=== PATIENT | male | born 1960 | race Hispanic/Latino ===

== ENCOUNTER 2018-02-24 07:41 | Day surgery (SDC) | payer BC ==
[2018-02-22 14:23] VITALS: BP 135/78
[~2018-02-24] VITALS: Ht 170.2 cm; Wt 80.8 kg
[2018-02-24] VITALS (16 sets, daily range): BP systolic 114–142; BP diastolic 72–97
[~2018-02-24 07:41] MED LIST: ROSU20TA PO
[2018-02-24] MEDS ORDERED: LACTATED RINGERS 1000ML 1,000 ML IV ONE (08:39)
[2018-02-24] MEDS: CEFTRIAXONE SODIUM 1 GM IVP PRN ×2 (09:04→11:45)
[2018-02-24] MEDS ORDERED: BUPIVACAINE/PF 0.25% 30ML VIAL IJ ONE (11:29)
[2018-02-24] MEDS ORDERED: LIDOCAINE HCL 1% 20 ML VIAL ONE (11:29)
[2018-02-24] MEDS ORDERED: LIDOCAINE PF 2% 5ML ABBOJECT ONE (11:34)
[2018-02-24] MEDS ORDERED: PROPOFOL 10 MG/ML 20ML VIAL IV ONE (11:34)
[2018-02-24] MEDS ORDERED: FENTANYL CITRATE PF 50 MCG/1 ML 2ML VIAL ONE ×2 (11:34→12:04)
[2018-02-24] MEDS ORDERED: OPIUM/BELLADONNA ALKALOIDS 1 EACH SUPP.RECT RC ONE (12:37)
[2018-02-24] MEDS ORDERED: MEPERIDINE-PF 25 MG/ML SYG ONE (12:37)
--- NOTE | 2018-02-24 14:15 | NUR ---
INSTRUCTED PT AND SPOUSE ON CHANGE OF LOPES TO LEG BAG ,VERBALIZE UNDERSTANDING,NO COMPLAINTS
[2018-02-24] MEDS ORDERED: PHENAZOPYRIDINE HCL 200 MG TABLET ONE (15:00)
--- NOTE | 2018-02-24 15:20 | NUR ---
TO CAR VIA W/C
== END 2018-02-24 15:20 | disposition home or self-care (01) ==
LOC: DAH 07:41
PROVIDERS: ATTEND Urology
DX: D07.4 Carcinoma in situ of penis (principal); N35.911 Unspecified urethral stricture, male, meatal; N35.919 Unspecified urethral stricture, male, unspecified site; N48.5 Ulcer of penis; Z79.899 Other long term (current) drug therapy
CPT/HCPCS: 53605; 54105; A4218; A4344; A4354; A4358; A4510; A4600; J0696; J2001; J2175; J2704; J3010 ×2; J3490; J7030; J7120; 88305

== ENCOUNTER 2018-05-19 06:48 | Day surgery (SDC) | payer BC ==
[2018-05-17 14:45] VITALS: BP 141/83
[2018-05-17 15:12] LABS: BASOPHILS % (AUTO) 0.6 % (0.0-5.0); EOSINOPHILS % (AUTO) 6.2 % (0.0-8.0); HEMATOCRIT 43.6 % (42-54); LYMPHOCYTES % (AUTO) 20.7 % (21.0-51.0); MEAN CORPUSCULAR HEMOGLOBIN 30.9 pg (27.0-33.0); MEAN CORPUSCULAR HGB CONC 33.9 g/dL (32.0-36.0); NEUTROPHILS % (AUTO) 61.5 % (40.0-77.0); NUCLEATED RED BLOOD CELLS 0.1 % (0.0-0.19); PLATELET COUNT (AUTO) 141 K/uL (130-400); RED BLOOD CELL COUNT(AUTO) 4.79 MIL/uL (4.50-6.20); RED CELL DISTRIBUTION WIDTH 14.3 % (11.0-15.5)
[2018-05-19] VITALS (17 sets, daily range): BP systolic 111–165; BP diastolic 72–95
[~2018-05-19] VITALS: Ht 170.2 cm; Wt 83.0 kg
[~2018-05-19 06:48] MED LIST changes: +MULTIVITAMINS PO; +ROSU10TA22 PO; -ROSU20TA PO; +VITAMIN B12 PO
[2018-05-19] MEDS ORDERED: LACTATED RINGERS 1000ML 1,000 ML IV ONE (07:24)
[2018-05-19] MEDS: CEFTRIAXONE SODIUM 1 GM IVP ONE ×2 (07:35→09:45)
[2018-05-19] MEDS ORDERED: BUPIVACAINE/PF 0.25% 30ML VIAL IJ ONE (09:20)
[2018-05-19] MEDS ORDERED: BACITRACIN 28.4 GM OINT TP ONE (09:20)
[2018-05-19] MEDS ORDERED: LIDOCAINE HCL 1% 20 ML VIAL ONE (09:20)
[2018-05-19] MEDS ORDERED: GLYCOPYRROLATE 1 MG/5 ML SYRINGE ONE (09:35)
[2018-05-19] MEDS ORDERED: LIDOCAINE PF 2% 5ML ABBOJECT ONE ×2 (09:35→09:40)
[2018-05-19] MEDS ORDERED: SUCCINYLCHOLINE 200MG/10ML SYR ONE (09:35)
[2018-05-19] MEDS ORDERED: MIDAZOLAM HCL 1 MG/ML 2ML VIAL ONE (09:35)
[2018-05-19] MEDS ORDERED: DEXAMETHASONE SOD PHOSPHATE 10MG/ML 1ML VIAL ONE (09:35)
[2018-05-19] MEDS ORDERED: NEOSTIGMINE 5MG/5ML SYR IV ONE (09:36)
[2018-05-19] MEDS ORDERED: PROPOFOL 10 MG/ML 20ML VIAL IV ONE ×2 (09:36→09:58)
[2018-05-19] MEDS ORDERED: ONDANSETRON HCL 4 MG/2 ML VIAL ONE (09:36)
[2018-05-19] MEDS ORDERED: FENTANYL CITRATE PF 50 MCG/1 ML 2ML VIAL ONE ×2 (09:36→09:52)
[2018-05-19] MEDS ORDERED: ROCURONIUM 10MG/1ML SYR 10 MG/ML ML ONE (09:36)
[2018-05-19] MEDS ORDERED: MEPERIDINE-PF 25 MG/ML SYG ONE ×2 (11:00→11:08)
[2018-05-19] MEDS ORDERED: PHENAZOPYRIDINE HCL 200 MG TABLET ONE (11:57)
== END 2018-05-19 12:40 | disposition home or self-care (01) ==
LOC: DAH 06:48
PROVIDERS: ATTEND Urology
DX: D07.4 Carcinoma in situ of penis (principal); Z98.890 Other specified postprocedural states; Z79.899 Other long term (current) drug therapy
CPT/HCPCS: 36415; 53220; 53605; 85025; 88302; A4218 ×2; A4510; A4600; A4649; J0330; J0696; J1100; J2001 ×2; J2175 ×2; J2250; J2405; J2704 ×2; J2710; J3010 ×2; J3490; J7120

== ENCOUNTER 2018-10-20 06:59 | Day surgery (SDC) | payer BC ==
[2018-10-18 16:33] VITALS: BP 144/77
--- NOTE | 2018-10-18 16:57 | NUR ---
ANTIBIOTIC INFORMED BRANDEE AT DR. FAROOQ OFFICE OF PT TAKING ANTIBIOTIC SINCE LAST WEEK. DENIES FEELING ILL. WILL INFORM DR. DEL RIO
[2018-10-18 17:01] LABS: BASOPHILS % (AUTO) 0.8 % (0.0-5.0); HEMATOCRIT 43.7 % (42-54); LYMPHOCYTES % (AUTO) 21.9 % (21.0-51.0); MEAN CORPUSCULAR HEMOGLOBIN 30.8 pg (27.0-33.0); MEAN CORPUSCULAR VOLUME 90.5 fL (79-99); MONOCYTES % (AUTO) 12.7 % (3.0-13.0); NEUTROPHILS % (AUTO) 58.6 % (40.0-77.0); PLATELET COUNT (AUTO) 166 K/uL (130-400); RED BLOOD CELL COUNT(AUTO) 4.83 MIL/uL (4.50-6.20); RED CELL DISTRIBUTION WIDTH 13.8 % (11.0-15.5); WHITE BLOOD COUNT (AUTO) 6.6 K/uL (4.8-10.8)
[2018-10-20] VITALS (16 sets, daily range): BP systolic 100–132; BP diastolic 64–79
[~2018-10-20] VITALS: Ht 168.9 cm; Wt 80.8 kg
[2018-10-20] MEDS: CEFTRIAXONE SODIUM 1 GM IVP SCH ×2 (06:00→09:45)
[~2018-10-20 06:59] MED LIST changes: +DOXY100T19 PO
[2018-10-20] MEDS ORDERED: LACTATED RINGERS 1000ML 1,000 ML IV ONE (07:12)
[2018-10-20] MEDS ORDERED: SUCCINYLCHOLINE 200MG/10ML SYR ONE (09:33)
[2018-10-20] MEDS ORDERED: LIDOCAINE PF 2% 5ML ABBOJECT ONE ×2 (09:33→09:35)
[2018-10-20] MEDS ORDERED: DEXAMETHASONE SOD PHOSPHATE 10MG/ML 1ML VIAL ONE (09:33)
[2018-10-20] MEDS ORDERED: NEOSTIGMINE 5MG/5ML SYR IV ONE (09:34)
[2018-10-20] MEDS ORDERED: ONDANSETRON HCL 4 MG/2 ML VIAL ONE (09:34)
[2018-10-20] MEDS ORDERED: PROPOFOL 10 MG/ML 20ML VIAL IV ONE (09:34)
[2018-10-20] MEDS ORDERED: GLYCOPYRROLATE 1 MG/5 ML SYRINGE ONE (09:34)
[2018-10-20] MEDS ORDERED: ROCURONIUM 10MG/1ML SYR 10 MG/ML ML ONE (09:34)
[2018-10-20] MEDS ORDERED: FENTANYL CITRATE PF 50 MCG/1 ML 2ML VIAL ONE ×2 (09:34→09:53)
[2018-10-20] MEDS ORDERED: MIDAZOLAM HCL 1 MG/ML 2ML VIAL ONE (09:34)
[2018-10-20] MEDS ORDERED: BUPIVACAINE/PF 0.25% 30ML VIAL IJ ONE (09:52)
[2018-10-20] MEDS ORDERED: BACITRACIN 28.4 GM OINT TP ONE (09:52)
[2018-10-20] MEDS ORDERED: MEPERIDINE-PF 25 MG/ML SYG ONE (10:22)
--- NOTE | 2018-10-20 11:45 | NUR ---
PATIENT ARRIVED PATIENT BROUGHT TO ROOM 2 BY ZAC MENDEZ. PATIENT AAOX3, RESPIRATIONS UNLABORED, VITAL SIGNS STABLE, DENIES ANY PAIN AT THIS TIME. DRESSING TO PENIS IS DRY AND INTACT. LOPES CATHETER INTACT AND DRAINING YELLOW URINE. SIDERAILS UP X2, BED IN LOWEST POSITION , CALL [facility] IN [place]
[2018-10-20] MEDS ORDERED: PHENAZOPYRIDINE HCL 200 MG TABLET ONE (11:50)
--- NOTE | 2018-10-20 12:15 | NUR ---
dc dc instructions given to pt spouse with rx, ochoa leg bag applied, instructed on ochoa care. pt states he has had a ochoa cath before is aware of the care. dressing to tip of penis dry and int act, instructed to remove later today or tomorrow and that he may showere 10-21-18, pt spouse verbalized understanding.
--- NOTE | 2018-10-20 12:35 | NUR ---
DC PT DC HOME VIA WC NO DISTRESSNOTED. DENIED ANY PAIN OR DISCOMFORTS. ACCOMPANIED BY SPOUSE, FC IN PLACE WITH LEG BAG
== END 2018-10-20 12:35 | disposition home or self-care (01) ==
LOC: DAH 06:59
PROVIDERS: ATTEND Urology
DX: D07.4 Carcinoma in situ of penis (principal); L90.5 Scar conditions and fibrosis of skin; N40.0 Benign prostatic hyperplasia without lower urinary tract symptoms; Z79.899 Other long term (current) drug therapy
CPT/HCPCS: 11420; 11423; 12042; 36415; 85025; 88305; A4215; A4221; A4222; A4223; A4606; A4649; A4663; J0330; J0696; J1100; J2001 ×2; J2175; J2250; J2405; J2704; J2710; J3010 ×2; J3490 ×2; J7120

== ENCOUNTER → 2023-05-19 | Outpatient (CLI) | payer OTHER ==
[~2023-05-19] MED LIST changes: -DOXY100T19 PO; -MULTIVITAMINS PO; +VITAMIN C PO; +VITAMIN D PO
== END | disposition home or self-care (01) ==
LOC: OIH 14:14
PROVIDERS: ATTEND Family Medicine
DX: Z13.6 Encounter for screening for cardiovascular disorders (principal)
CPT/HCPCS: 75571

== ENCOUNTER 2023-07-13 15:32 | Emergency (ER) | payer OTHER ==
[~2023-07-13] VITALS: Ht 167.6 cm; Wt 78.0 kg
[2023-07-13 15:32] VITALS: BP 140/81; PULSE 70; RESP 18
[2023-07-13] MEDS: TETANUS/DIPHTHERIA TOXOID [ADULT] 0.5 ML VIAL IM ONE (16:25)
[2023-07-13] MEDS: AMOX/CLAV 875/125MG TAB PO ONE (16:25)
[2023-07-13] MEDS: HYDROCODONE/ACETAMINOPHEN 5/325 MG TAB PO ONE (16:25)
[2023-07-13] MEDS: IBUPROFEN 600 MG TABLET PO ONE (16:25)
[2023-07-13] MEDS ORDERED: AMOX1TAB16 PO (17:19)
== END 2023-07-13 17:56 | disposition home or self-care (01) ==
LOC: EDH 15:32
DX: S81.832A Puncture wound without foreign body, left lower leg, initial encounter (principal); Z79.899 Other long term (current) drug therapy; Z98.890 Other specified postprocedural states; W54.0XXA Bitten by dog, initial encounter; Y93.89 Activity, other specified; Y92.89 Other specified places as the place of occurrence of the external cause; Y99.8 Other external cause status
CPT/HCPCS: 73590; 90471; 90714

== ENCOUNTER 2023-11-04 07:07 | Day surgery (SDC) | payer OTHER ==
[2023-11-02 12:32] LABS: BASOPHILS # (AUTO) 0.04 K/uL (0.00-0.20); BASOPHILS % (AUTO) 0.8 % (0.0-5.0); EOSINOPHILS # (AUTO) 0.31 K/uL (0.00-0.70); EOSINOPHILS % (AUTO) 6.1 % (0.0-8.0); HEMATOCRIT 41.4 % (42-54); IMMATURE GRANULOCYTE ABSOLUTE 0.05 K/uL (0-1); LYMPHOCYTES # (AUTO) 1.1 K/uL (1.0-4.8); LYMPHOCYTES % (AUTO) 22.1 % (21.0-51.0); MEAN CORPUSCULAR HEMOGLOBIN 30.8 pg (27.0-33.0); MEAN CORPUSCULAR HGB CONC 33.6 g/dL (32.0-36.0); MEAN CORPUSCULAR VOLUME 91.8 fL (79-99); MONOCYTES # (AUTO) 0.6 K/uL (0.1-1.0); MONOCYTES % (AUTO) 11.4 % (3.0-13.0); NEUTROPHILS % (AUTO) 58.6 % (40.0-77.0); PLATELET COUNT (AUTO) 164 K/uL (130-400); RED BLOOD CELL COUNT(AUTO) 4.51 MIL/uL (4.50-6.20); RED CELL DISTRIBUTION WIDTH 13.2 % (11.0-15.5); WHITE BLOOD COUNT (AUTO) 5.1 K/uL (4.8-10.8)
[2023-11-02 12:38] LABS: POTASSIUM 4.5 mmol/L (3.5-5.1)
[2023-11-02 13:03] VITALS: BP 137/76; PULSE 71; RESP 16; TEMP 97.6
[~2023-11-04] VITALS: Ht 167.6 cm; Wt 80.2 kg
[2023-11-04] VITALS (16 sets, daily range): BP systolic 107–130; BP diastolic 65–83; PULSE 50–77; RESP 9–16; TEMP 97.3–97.8
[~2023-11-04 07:07] MED LIST changes: +MVI PO
[2023-11-04] MEDS: LACTATED RINGERS 1000ML 1,000 ML IV ONE (07:49)
[2023-11-04] MEDS: cefTRIAXone 1G VIAL ONE (07:49)
[2023-11-04] MEDS ORDERED: BACITRACIN 28.4 GM OINT TP ONE (09:13)
[2023-11-04] MEDS ORDERED: BUPIvacaine/PF 0.25% 30ML VIAL IJ ONE (09:13)
[2023-11-04] MEDS ORDERED: morPHINE 4 MG SYG ONE (09:14)
[2023-11-04] MEDS ORDERED: acetaMINOPHEN 1,000 MG/100 ML VIAL IV ONE (09:14)
[2023-11-04] MEDS ORDERED: FAMOTIDINE 20MG VIAL IV ONE (09:15)
[2023-11-04] MEDS ORDERED: MIDAZOLAM HCL 1 MG/ML 2ML VIAL ONE (09:19)
[2023-11-04] MEDS ORDERED: FENTanyl CITRate PF 50 MCG/1 ML 2ML VIAL ONE (09:19)
[2023-11-04] MEDS ORDERED: proPOFol 10 MG/ML 20ML VIAL IV ONE (09:20)
[2023-11-04] MEDS ORDERED: LIDOCAINE PF 100MG/5ML (2%) SYRINGE 5ML ONE (09:20)
[2023-11-04] MEDS: BUPIvacaine/PF 0.25% 30ML VIAL IJ ONE (09:23)
[2023-11-04] MEDS ORDERED: ondanSETRON 4MG INJ ONE (09:30)
[2023-11-04] MEDS ORDERED: dexaMETHasone SOD PHOSPHATE 10MG/ML 1ML VIAL ONE (09:30)
[2023-11-04] MEDS ORDERED: CEPH500B PO (11:43)
[2023-11-04] MEDS ORDERED: TRAM50TA4 PO (11:43)
[2023-11-04] MEDS: PHENAZOpyridine HCL 200 MG TAB 200 MG TABLET PO ONE (12:13)
== END 2023-11-04 12:25 | disposition home or self-care (01) ==
LOC: DAH 07:07
PROVIDERS: ATTEND Urology
DX: N48.5 Ulcer of penis (principal); D07.4 Carcinoma in situ of penis; N48.89 Other specified disorders of penis; N35.911 Unspecified urethral stricture, male, meatal; Z79.899 Other long term (current) drug therapy
CPT/HCPCS: 80048; 85025; 36415; 53605; 54055; 11422; 88305; 88360; 88342; A6260; A4663; A4314; A4606; A4354; J7120; J3490 ×2; J3010; J1100; J0665 ×2; J0696; J2250; J2704; J2405; J2270; A6446; A4215; A4223; A4358; A4222; A4221; A4510; A4600